=== PATIENT | male | born 1980 | race Caucasian/White ===

== ENCOUNTER 2018-12-17 11:42 | Emergency (ER) | payer SELFPAY ==
[~2018-12-17] VITALS: Ht 190.5 cm; Wt 94.3 kg
[2018-12-17 12:36] VITALS: BP 132/90
[2018-12-17] MEDS ORDERED: DEXAMETHASONE SOD PHOSPHATE 10 MG/ML VIAL ONE (13:52)
[2018-12-17] MEDS ORDERED: KETOROLAC TROMETHAMINE INJ 30 MG/ML VIAL ONE (13:52)
[2018-12-17] MEDS ORDERED: HYDROCODONE/APAP 10/325MG 1 EA TABLET ONE (13:53)
[2018-12-17] MEDS ORDERED: DEXAMETHASONE SOD PHOSPHATE 4 MG/ML VIAL IM ONE (14:00)
[2018-12-17] MEDS ORDERED: KETOROLAC TROMETHAMINE INJ 60 MG/2 ML VIAL IM ONE (14:00)
[2018-12-17] MEDS ORDERED: HYDROCODONE/APAP 10/325MG 1 EA TABLET PO ONE (14:00)
[2018-12-17 14:03] LABS: BASOPHILS % (AUTO) 0.6 % (0.0-2.0); EOSINOPHILS % (AUTO) 1.6 % (0.0-6.0); HEMATOCRIT 48 % (39-51); HEMOGLOBIN 16.3 g/dL (13.5-17.5); LYMPHOCYTES # (AUTO) 1.6 /CMM (0.8-4.8); MEAN CORPUSCULAR HGB CONC 34 g/dl (31.0-36.0); MEAN CORPUSCULAR VOLUME 90 fL (80-96); MONOCYTES # (AUTO) 0.6 /CMM (0.1-1.30); MONOCYTES % (AUTO) 8.1 % (2.0-12.0); NEUTROPHILS # (AUTO) 4.7 /CMM (1.8-8.9); NEUTROPHILS % (AUTO) 66.7 % (43.0-81.0); PLATELET COUNT (AUTO) 280 /CMM (150-450); RED BLOOD CELL COUNT(AUTO) 5.32 MIL/uL (4.5-6.0)
== END 2018-12-17 15:31 | disposition home or self-care (01) ==
LOC: ER 11:46
DX: G89.29 Other chronic pain (principal); M54.5 Low back pain; M54.6 Pain in thoracic spine; E05.00 Thyrotoxicosis with diffuse goiter without thyrotoxic crisis or storm
CPT/HCPCS: 36415; 72110; 85025; 85652; 86140; 96372 ×2; 99284; A4606; J1100; J1885; Z7610

== ENCOUNTER 2019-05-31 16:51 | Emergency (ER) | payer SELFPAY ==
[~2019-05-31] VITALS: Ht 175.3 cm; Wt 74.8 kg
[2019-05-31 17:13] VITALS: BP 142/90
[2019-05-31] MEDS ORDERED: DEXAMETHASONE SOD PHOSPHATE 4 MG/ML VIAL IM ONE (17:30)
[2019-05-31] MEDS ORDERED: CYCLOBENZAPRINE 10 MG TABLET PO ONE (17:30)
[2019-05-31] MEDS ORDERED: KETOROLAC TROMETHAMINE INJ 60 MG/2 ML VIAL IM ONE ×2 (17:30→17:33)
[2019-05-31] MEDS ORDERED: CYCLOBENZAPRINE 10 MG TABLET ONE (17:33)
[2019-05-31] MEDS ORDERED: DEXAMETHASONE SOD PHOSPHATE 10 MG/ML VIAL ONE (17:33)
== END 2019-05-31 18:16 | disposition home or self-care (01) ==
LOC: ER 16:56
DX: G89.29 Other chronic pain (principal); M54.5 Low back pain
CPT/HCPCS: 96372 ×2; 99283; J1100; J1885

== ENCOUNTER 2019-06-23 19:39 | Emergency (ER) | payer SELFPAY ==
[~2019-06-23] VITALS: Ht 188 cm; Wt 102.1 kg
[2019-06-23 19:52] VITALS: BP 139/91
[2019-06-23] MEDS ORDERED: HYDROCODONE/APAP 10/325MG 1 EA TABLET ONE (20:16)
[2019-06-23] MEDS ORDERED: ONDANSETRON 4 MG TAB.RAPDIS ONE (20:16)
--- NOTE | 2019-06-23 20:25 | NUR ---
PT MEDICATED ORDERED.
[2019-06-23] MEDS ORDERED: HYDROCODONE/APAP 10/325MG 1 EA TABLET PO ONE (20:30)
[2019-06-23] MEDS ORDERED: ONDANSETRON 4 MG TAB.RAPDIS SL ONE (20:30)
== END 2019-06-23 21:27 | disposition home or self-care (01) ==
LOC: ER 19:40
DX: S20.211A Contusion of right front wall of thorax, initial encounter (principal); M54.5 Low back pain; G89.29 Other chronic pain; E05.00 Thyrotoxicosis with diffuse goiter without thyrotoxic crisis or storm; Z98.890 Other specified postprocedural states; W01.0XXA Fall on same level from slipping, tripping and stumbling without subsequent striking against object, initial encounter; Y93.89 Activity, other specified; Y92.89 Other specified places as the place of occurrence of the external cause; Y99.8 Other external cause status
CPT/HCPCS: 71100; 99283; Q0162

== ENCOUNTER 2020-04-16 14:31 | Emergency (ER) | payer OTHER ==
[~2020-04-16] VITALS: Ht 188 cm; Wt 108.9 kg
[2020-04-16 14:35] VITALS: BP 155/110
[2020-04-16] MEDS ORDERED: predniSONE 20 MG TABLET ONE (14:48)
[2020-04-16] MEDS ORDERED: predniSONE 20 MG TABLET PO ONE (15:00)
== END 2020-04-16 14:57 | disposition home or self-care (01) ==
LOC: ER 14:38
DX: M19.042 Primary osteoarthritis, left hand (principal); M19.041 Primary osteoarthritis, right hand; G89.29 Other chronic pain; Z98.890 Other specified postprocedural states
CPT/HCPCS: 99283; J7512